=== PATIENT | female | born 1960 | race Caucasian/White ===

== ENCOUNTER 2017-12-07 10:21 | Emergency (ER) | payer SELFPAY ==
--- NOTE | 2017-12-07 11:43 | ER ---
Nurse's Notes [facility] Name: Jodie Frausto Age: 57 yrs Sex: Female : 1960 Arrival Date: 12/07/2017 Time: 10:26 Bed 12 Private MD: Out, [facility] Diagnosis: Strain of muscle and tendon of back wall of thorax-right trapezius Presentation: 12/07 10:28 Presenting complaint: Patient states: right shoulder pain since August 2017. Transition sv of care: patient was not received from another setting of care. Onset of symptoms was August 2017. Risk Assessment: Do you want to hurt yourself or someone else? Patient reports no desire to harm self or others. Care prior to arrival: None. 10:28 Method Of Arrival: Ambulatory sv 10:28 Acuity: HELEN 4 sv 11:15 Initial Sepsis Screen: Does the patient meet any 2 criteria? No. Patient's initial ss sepsis screen is negative. Does the patient have a suspected source of infection? No. Patient's initial sepsis screen is negative. Triage Assessment: 11:15 General: Appears in no apparent distress. comfortable, Behavior is calm, cooperative. ss Historical: - Allergies: 10:29 No Known Allergies; sv - PMHx: 10:29 Asthma; sv 10:31 Hypertension; sv - PSHx: 10:29 right hand; ; sv - Immunization history:: Adult Immunizations up to date. - Social history:: Smoking status: Patient uses tobacco products, smokes one-half pack cigarettes per day. - Ebola Screening: : No symptoms or risks identified at this time. Screenin:15 Abuse screen: Denies threats or abuse. Denies injuries from another. Nutritional ss screening: No deficits noted. Tuberculosis screening: Never had TB. Fall Risk None identified. Assessment: 11:15 General: Appears in no apparent distress. comfortable, Behavior is calm, cooperative. ss Pain: Complains of pain in anterior aspect of right shoulder Pain currently is 10 out of 10 on a pain scale. Quality of pain is described as aching, tender, Pain began August, Is continuous. Neuro: Level of Consciousness is awake, alert, Oriented to person, place, time, situation. Cardiovascular: Capillary refill < 3 seconds is brisk in bilateral fingers Patient's skin is warm and dry. Respiratory: Airway is patent Respiratory effort is even, unlabored, Respiratory pattern is regular, symmetrical. EENT: Oral mucosa is moist. Derm: Skin is intact, is healthy with good turgor, Skin is dry, Skin is pink, warm \T\ dry. normal. Musculoskeletal: Circulation, motion, and sensation intact. Range of motion: intact in all extremities, Swelling absent. Vital Signs: 10:29 BP 161 / 109; Pulse 63; Resp 18; Temp 99.2(TE); Pulse Ox 97% ; Weight 46.27 kg; Height sv 5 ft. 0 in. (152.40 cm); Pain 10/10; 10:29 Body Mass Index 19.92 (46.27 kg, 152.40 cm) sv ED Course: 10:26 Patient arrived in ED. sb2 10:26 Out, of Town is Private Physician. sb2 10:28 Triage completed. sv 10:31 Arm band placed on left wrist. sv 10:58 Leon High NP is PHCP. pm1 10:58 Al Bryant MD is Attending Physician. pm1 11:05 Marva Fine, ANANT is Primary Nurse. ss 11:15 Patient has correct armband on for positive identification. Bed in low position. Call ss light in reach. 12:00 No provider procedures requiring assistance completed. Patient did not have IV access ss during this emergency room visit. Administered Medications: No medications were administered Outcome: 11:43 Discharge ordered by . pm1 12:00 Discharged to home ambulatory. ss 12:00 Condition: good 12:00 Discharge instructions given to patient, Instructed on discharge instructions, medication usage, Demonstrated understanding of instructions, follow-up care, medications, Prescriptions given X 4. 12:01 Patient left the ED. Signatures: Marge Zee RN RN Marva Fine RN RN Leon High NP HYPERBARIC TECH pm1 Yamel Edwards sb2 Corrections: (The following items were deleted from the chart) 12:35 11:05 Reassessment: Pt ambulated to the restroom with steady gait. ss ss
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
== END 2017-12-07 12:01 | disposition home or self-care (01) ==
LOC: ER 10:21
DX: S29.012A Strain of muscle and tendon of back wall of thorax, initial encounter (principal); X50.3XXA Overexertion from repetitive movements, initial encounter; Y92.019 Unspecified place in single-family (private) house as the place of occurrence of the external cause; J45.909 Unspecified asthma, uncomplicated; F17.210 Nicotine dependence, cigarettes, uncomplicated; I10 Essential (primary) hypertension
CPT/HCPCS: 99282

== ENCOUNTER 2018-06-15 23:30 | Emergency (ER) | payer SELFPAY ==
[2018-06-16] MEDS ORDERED: NA CHLORIDE 0.9% 1,000 ML ONE (00:43)
[2018-06-16 00:46] LABS: Absolute Lymphocytes (CBC) 1.7 K/uL (0.7-4.9); Absolute Monocytes 1.4 K/uL (0.1-1.3); Absolute Neutrophil 11.5 K/uL (1.8-8.0); Basophils % 0.6 % (0-1.3); Eosinophils % 0.9 % (0-4.4); Hematocrit 44.2 % (36.0-45.0); Lymphocytes % 11.3 % (15.3-44.8); MCH 30.6 pg (27.0-35.0); MCV 90.3 fL (80-100); MPV 8.7 fL (7.6-11.3); Monocytes % 9.3 % (3.3-12.3); RBC Red Blood Cell Count 4.89 M/uL (3.86-4.86)
[2018-06-16 00:53] LABS: Protime INR 1.02
[2018-06-16 01:18] LABS: ALT/SGPT 27 U/L (12-78); AST/SGOT 24 U/L (15-37); Albumin 4.5 g/dL (3.4-5.0); Alkaline Phosphatase 76 U/L (45-117); BUN Blood Urea Nitrogen 20 mg/dL (7-18); Bicarbonate 24 mmol/L (21-32); Bilirubin Direct 0.1 mg/dL (0-0.2); Bilirubin Total 0.7 mg/dL (0.2-1.0); Glucose Level 98 mg/dL (74-106); Protein, Total 7.2 g/dL (6.4-8.2); Sodium Level 139 mmol/L (136-145)
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
[2018-06-16] MEDS ORDERED: HYDROCODONE/APAP 10/325 TAB ONE (02:34)
[2018-06-16] MEDS ORDERED: KETOROLAC 30 MG/ML INJ ONE (02:34)
[2018-06-16 02:42] LABS: Urine Blood NEGATIVE (NEG); Urine Glucose NEGATIVE (NEG); Urine Protein NEGATIVE (NEG); Urine pH 5.5 (5.0-7.0)
[2018-06-16 02:55] LABS: Barbiturates NEGATIVE (NEGATIVE); Benzodiazepines NEGATIVE (NEGATIVE); Cocaine NEGATIVE (NEGATIVE); METHAMPHETAM NEGATIVE (NEGATIVE); Methadone NEGATIVE (NEGATIVE); Opiates NEGATIVE (NEGATIVE); Phencyclidine NEGATIVE (NEGATIVE); THC Cannibis POSITIVE (NEGATIVE)
--- NOTE | 2018-06-16 05:57 | EKG ---
Test Date: 2018-06-16 Test Time: 00:19:20 Quality Control Tech [employer] Materials: BRITTANY MEASUREMENT RESULTS: Intervals: Rate: 82 ME: 152 QRSD: 86 QT: 394 QTc: 460 [place]: P: 79 ME: 152 QRS: 9 T: 73 INTERPRETIVE STATEMENTS: Normal sinus rhythm Anterior infarct, age undetermined Abnormal ECG No previous ECG available for comparison Electronically Signed On 06-16-18 05:57:15 COMMISSIONING EDITOR by Jose Bender
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
== END 2018-06-16 03:51 | disposition home or self-care (01) ==
LOC: ER 23:30
DX: S16.1XXA Strain of muscle, fascia and tendon at neck level, initial encounter (principal); S22.41XA Multiple fractures of ribs, right side, initial encounter for closed fracture; S20.229A Contusion of unspecified back wall of thorax, initial encounter; S20.211A Contusion of right front wall of thorax, initial encounter; J44.9 Chronic obstructive pulmonary disease, unspecified; Y04.8XXA Assault by other bodily force, initial encounter; Y93.9 Activity, unspecified; Y92.89 Other specified places as the place of occurrence of the external cause; F17.210 Nicotine dependence, cigarettes, uncomplicated; J45.909 Unspecified asthma, uncomplicated
CPT/HCPCS: 36415; 70450; 71250; 72125; 80048; 80076; 80307; 80320; 80329; 81003; 85025; 85610; 85730; 93005; 96361; 96374; 99285; J7030